=== PATIENT | male | born 1990 | race African-American/Black ===

== ENCOUNTER 2018-01-06 07:51 | Emergency (ER) | payer BC, MEDICAID ==
[~2018-01-06] VITALS: Ht 182.9 cm; Wt 105.0 kg
[2018-01-06 07:53] VITALS: BP 138/64
[2018-01-06] MEDS ORDERED: AZITHROMYCIN 500 MG TABLET PO ONE (10:00)
[2018-01-06] MEDS ORDERED: CEFTRIAXONE SODIUM 250 MG/VIAL IM ONE (10:00)
[2018-01-06] MEDS ORDERED: LIDOCAINE HCL/PF 1% 10 MG/ML 5ML VIAL IJ ONE (10:00)
[2018-01-06 10:12] LABS: CLARITY URINE CLEAR (CLEAR); COLOR URINE YELLOW (YELLOW); KETONES URINE NEGATIVE (NEGATIVE); LEUKOCYTE ESTERASE URINE TRACE (NEGATIVE); NITRITE URINE NEGATIVE (NEGATIVE); OCCULT BLOOD URINE NEGATIVE (NEGATIVE); PH URINE 5.5 (4.5-8.0); PROTEIN URINE NEGATIVE (NEGATIVE); UROBILINOGEN URINE 0.2 E.U./dL (0.2-1.0)
== END 2018-01-06 11:00 | disposition home or self-care (01) ==
LOC: ER 07:51
DX: N34.2 Other urethritis (principal); R21 Rash and other nonspecific skin eruption; Z88.0 Allergy status to penicillin; F17.210 Nicotine dependence, cigarettes, uncomplicated
CPT/HCPCS: 81003; 87077; 87086; 96372; 99284; J0696

== ENCOUNTER 2018-08-18 11:13 | Emergency (ER) | payer BC, MEDICAID ==
[~2018-08-18] VITALS: Ht 182.9 cm; Wt 109.0 kg
[2018-08-18 11:35] VITALS: BP 124/72
[2018-08-18] MEDS ORDERED: AZITHROMYCIN 500 MG TABLET PO ONE (12:15)
[2018-08-18] MEDS ORDERED: LIDOCAINE HCL 1% 20ML VIAL (Pyxis) INJ INFIL ONE (12:15)
[2018-08-18] MEDS ORDERED: CEFTRIAXONE SODIUM 250 MG/VIAL IM ONE (12:15)
[2018-08-18 12:28] LABS: CLARITY URINE CLEAR (CLEAR); COLOR URINE YELLOW (YELLOW); KETONES URINE NEGATIVE (NEGATIVE); LEUKOCYTE ESTERASE URINE 1+ (NEGATIVE); NITRITE URINE NEGATIVE (NEGATIVE); OCCULT BLOOD URINE NEGATIVE (NEGATIVE); PROTEIN URINE NEGATIVE (NEGATIVE); SPECIFIC GRAVITY URINE 1.028 (1.005-1.030)
[2018-08-21 04:14] LABS: CHLAMYDIA TRACHOMATIS NAA Positive (Negative); NEISSERIA GONORRHOEAE NAA Negative (Negative)
== END 2018-08-18 12:50 | disposition left against medical advice (07) ==
LOC: ER 11:13
DX: N48.89 Other specified disorders of penis (principal); R36.9 Urethral discharge, unspecified; Z88.0 Allergy status to penicillin
CPT/HCPCS: 81003; 87086; 87491; 87591; 99283; J0696; J3490

== ENCOUNTER 2024-03-13 17:25 | Emergency (ER) | payer MEDICAID ==
[~2024-03-13] VITALS: Ht 182.9 cm; Wt 118.0 kg
[2024-03-13 17:36] VITALS: O2SAT 98
[2024-03-13 17:51] VITALS: BP 134/117; PULSE 150; RESP 37; TEMP 36.89184; O2SAT 100
== END 2024-03-13 18:03 | disposition left against medical advice (07) ==
LOC: ER 17:25
DX: M54.2 Cervicalgia (principal); Z88.0 Allergy status to penicillin
CPT/HCPCS: 99281; Z7610 ×3; A4606

== ENCOUNTER 2024-09-26 12:47 | Emergency (ER) | payer MEDICAID ==
[~2024-09-26] VITALS: Ht 182.9 cm; Wt 110.0 kg
[2024-09-26 12:52] VITALS: O2SAT 99
[2024-09-26 14:04] LABS: CLARITY URINE CLOUDY (CLEAR); COLOR URINE YELLOW (YELLOW); GLUCOSE URINE NEGATIVE (NEGATIVE); KETONES URINE NEGATIVE (NEGATIVE); LEUKOCYTE ESTERASE URINE 3+ (NEGATIVE); NITRITE URINE NEGATIVE (NEGATIVE); OCCULT BLOOD URINE 3+ (NEGATIVE); PROTEIN URINE TRACE (NEGATIVE); SPECIFIC GRAVITY URINE 1.021 (1.005-1.030); UROBILINOGEN URINE 0.2 E.U./dL (0.2-1.0)
[2024-09-26] MEDS ORDERED: DOXY100T2 MT (14:15)
[2024-09-26 14:23] LABS: SQUAMOUS EPITHELIAL CELL URINE RARE /lpf (RARE/1+)
[2024-09-26 14:24] LABS: BACTERIA URINE 2+; RBC URINE TNTC /hpf (0-2); WBC URINE TNTC /hpf (0-2)
[2024-09-26] MEDS: CEFTRIAXONE SODIUM 500MG VIAL IM ONE (14:53)
[2024-09-26] MEDS ORDERED: PHEN-910 MT (15:48)
[2024-09-26] MEDS ORDERED: CIPR-452 MT (15:54)
[2024-09-26 16:16] VITALS: BP 130/88; PULSE 88; RESP 18; TEMP 37.1; O2SAT 99
[2024-09-28 13:13] LABS: CHLAMYDIA TRACHOMATIS NAA Negative (Negative); NEISSERIA GONORRHOEAE NAA Positive (Negative)
== END 2024-09-26 16:19 | disposition home or self-care (01) ==
LOC: ER 12:57
DX: M79.642 Pain in left hand (principal); Z11.3 Encounter for screening for infections with a predominantly sexual mode of transmission; N39.0 Urinary tract infection, site not specified; F10.90 Alcohol use, unspecified, uncomplicated; A54.89 Other gonococcal infections; Z88.0 Allergy status to penicillin; Z79.899 Other long term (current) drug therapy; Y90.9 Presence of alcohol in blood, level not specified
CPT/HCPCS: 99284; 86592; 87491; 87591; 81003; 87086; 36415; 73100; 96372; J0696